=== PATIENT | female | born 1995 | race Caucasian/White ===

== ENCOUNTER 2019-03-25 00:28 | Emergency (ER) | payer OTHER, MEDICAID ==
[~2019-03-25] VITALS: Ht 165.1 cm; Wt 72.6 kg
[~2019-03-25 00:28] MED LIST: ACETAMINOPHEN-1 EAC1 PO; BACTRIM DS TAB1 EACH PO; BENTYL10 MG PO; BENTYL20 MG PO; CIPROFLOXACIN500 M1 PO; FLEXERIL PO; HYDROCODONE-AP1 EAC6 PO; IBUPROFEN 800800 M1 PO; LEXAPRO 10 MG T10 M1 PO; LEXAPRO5 MG PO; MEDROLDOSEPACK PO; NAPROSYN500 MG PO; NOHOMEMEDICATIONS; NORCO 5-325 TA1 EACH PO; ORTHO TRI-CYCL1 EACH PO; PROAIR HFA8.5 GM INH; PROMETHAZINE D480 ML PO; TESSALON PERLE100 MG PO; VICODIN 5-5001 EACH PO; ZOFRAN ODT4 MG PO; ZPAK PO
[2019-03-25 01:02] LABS: ABSOLUTE BASOPHILS 0.1 thou/uL (0.0-0.2); ABSOLUTE EOSINOPHILS 0.8 thou/uL (0.0-0.7); ABSOLUTE LYMPHOCYTES 3.6 thou/uL (0.8-5.3); ABSOLUTE MONOCYTES 0.8 thou/uL (0.0-1.2); ABSOLUTE NEUTROPHILS 4.6 thou/uL (1.6-8.1); BASOPHILS 1.1 %; EOSINOPHILS 7.7 %; HEMATOCRIT 40.7 % (37.0-47.0); HEMOGLOBIN 13.4 gm/dL (12.0-15.0); LYMPHOCYTES 36.3 %; MCH 27.1 pg (26.0-34.0); MCHC 32.9 g/dL (28.0-37.0); MCV 82.3 fL (80.0-100.0); MONOCYTES 8.3 %; MPV 8.4 fl. (7.2-11.1); NUCLEATED RBCS 0 /100WBC; PLATELET COUNT* 313 thou/uL (150-400); POLYS 46.6 %; RBC 4.94 mil/uL (4.20-5.00); RDW-CV 13.9 % (10.5-14.5); WBC 9.9 thou/uL (4.0-11.0)
[2019-03-25 01:29] LABS: PROTIME 10.2 Seconds (9.20-11.50)
[2019-03-25 01:42] LABS: ANION GAP 10 mmol/L (7-16); BUN 11 mg/dL (7-18); CALCIUM 8.7 mg/dL (8.5-10.1); CHLORIDE 108 mmol/L (98-107); CO2 25 mmol/L (21-32); CREATININE 0.8 mg/dL (0.6-1.3); GLUCOSE 110 mg/dL (70-99); POTASSIUM 3.8 mmol/L (3.5-5.1); SODIUM 143 mmol/L (136-145)
[2019-03-25 01:51] LABS: ALBUMIN 3.8 g/dL (3.4-5.0); ALKALINE PHOSPHATASE 88 U/L (46-116); LIPASE 149 U/L (73-393); SGOT 9 U/L (15-37); SGPT 20 U/L (30-65); TOTAL BILIRUBIN 0.1 mg/dL (<0.1-1.0); TOTAL PROTEIN 7.3 g/dL (6.4-8.2); TROPONIN-I LEVEL <0.06 ng/mL (<0.06)
[2019-03-25] MEDS ORDERED: CARAFATE1 GM PO (02:58)
[2019-03-25] MEDS ORDERED: VISTARIL 25 MG25 M1 PO (02:58)
[2019-03-25 04:06] VITALS: BP 102/71
--- NOTE | 2019-03-25 13:02 | EKG ---
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
== END 2019-03-25 04:08 | disposition home or self-care (01) ==
LOC: M.ERS 00:28
PROVIDERS: Personal Emergency Response Attendant
DX: R07.89 Other chest pain (principal); F32.9 Major depressive disorder, single episode, unspecified; Z90.49 Acquired absence of other specified parts of digestive tract

== ENCOUNTER 2021-07-22 18:07 | Emergency (ER) | payer MEDICAID ==
[~2021-07-22] VITALS: Ht 165.1 cm; Wt 67.1 kg
[~2021-07-22 18:07] MED LIST changes: +CARAFATE1 GM PO; +VISTARIL 25 MG25 M1 PO
[2021-07-22 19:16] VITALS: BP 123/70
--- NOTE | 2021-07-23 12:50 | EKG ---
[place] [address] ELECTROCARDIOGRAM REPORT Name: JOSEFINA DIETRICH Room: 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 07/23/21 1249 180 05 Matias De Leon MD, [facility] /EPI
== END 2021-07-22 19:17 | disposition home or self-care (01) ==
LOC: M.ERS 18:07
DX: R07.89 Other chest pain (principal); F32.9 Major depressive disorder, single episode, unspecified; Z98.51 Tubal ligation status; Z90.49 Acquired absence of other specified parts of digestive tract